=== PATIENT | female | born 1950 | race Caucasian/White ===

== ENCOUNTER 2017-06-10 21:38 | Emergency (ER) | payer MEDICARE ==
[~2017-06-10] VITALS: Ht 165.1 cm; Wt 61.8 kg
[~2017-06-10 21:38] MED LIST: ASPI81CH3 PO; BUPR150T3 PO; GABA600T PO; HYDR200T42 PO; LOSA50TA PO; MULT1TAB PO; NIFE30TA2 PO; OMEP20TA39 PO; PRESCAP5 PO; PROBCAP28; TUMS500C CHEW; [UNRECOGNIZED DRUG - CODE] TOPICAL
[2017-06-10 22:02] VITALS: BP 152/68; PULSE 106; RESP 18; TEMP 97.4; O2SAT 94
[2017-06-10] MEDS ORDERED: OCUVTAB4 PO (22:35)
[2017-06-10] MEDS ORDERED: PLAQ200T PO (22:35)
[2017-06-10] MEDS ORDERED: MULTTAB67 PO (22:35)
[2017-06-10] MEDS ORDERED: LOSA50TA PO (22:35)
[2017-06-10] MEDS ORDERED: NIFE1TAB PO (22:35)
[2017-06-10] MEDS ORDERED: BETH25TA2 PO (22:35)
[2017-06-10] MEDS ORDERED: ASPI-516 CHEW (22:35)
[2017-06-10] MEDS ORDERED: OMEP40CA2 PO (22:35)
--- NOTE | 2017-06-10 22:40 | PD ---
HPI Chief Complaint: ENT Complaint Time Seen by Provider: 22:27 Travel History International Travel<30 days: No Contact w/Intl Traveler<30days: No Traveled to known affect area: No History of Present Illness HPI This is a 66-year-old female who has a history of scleroderma who presents to the emergency department with bleeding from her nose that started 2 hours ago and just subsided here in the emergency department, constant, moderate severity , associated with some blood in her mouth. She had one episode of bleeding from her nose one week ago which subsided on its own. She takes a baby aspirin every day. She recently increased her blood pressure medications. PFSH Past Medical History Hx Anticoagulant Therapy: Yes (ASA 81 MG) Diminished Hearing: No Medical other: Yes (scleroderma) Tetanus Vaccination: Never Vaccinated Influenza Vaccination: Yes ?: Not Past Surgical History Surgical History: No Previous Surgery Social History Alcohol Use: Yes (2-4 drinks of wine daily) Tobacco Use: No Substance Use: No Allergies-Medications (Allergen,Severity, Reaction): Coded Allergies: No Known Allergies (Unverified Adverse Reaction, Unknown, 06/10/17) Reported Meds & Prescriptions Reported Meds & Active Scripts Active Bupropion HCl ER 24 HR (Bupropion HCl) 150 Mg Tab 150 Mg PO DAILY Gabapentin 600 Mg Tab 600 Mg PO HS Reported Multiple Vitamin 1 Tab 1 Tab PO DAILY Preservision Areds (Multiple Vitamins W/ Minerals) 1 Tab 1 Tab PO BID Bethanechol 25 Mg Tab 25 Mg PO QID Plaquenil (Hydroxychloroquine Sulfate) 200 Mg Tab 200 Mg PO DAILY Take with food Aspirin 81 Mg Chew 81 Mg CHEW DAILY Nifedipine ER 24 HR (Nifedipine) 90 Mg Tab 90 Mg PO DAILY Omeprazole 40 Mg Cap 40 Mg PO DAILY Losartan (Losartan Potassium) 50 Mg Tab 50 Mg PO DAILY Review of Systems General / Constitutional: No: Fever, Chills Cardiovascular: No: Chest Pain or Discomfort Respiratory: No: Shortness of Breath Physical Exam Narrative GENERAL: Well-appearing, no acute distress, nontoxic SKIN: Warm and dry. HEAD: Atraumatic. Normocephalic. ENT: Blood along the left nare. Moist mucous membranes MUSCULOSKELETAL: No obvious deformities. Moving all extremities. NEUROLOGICAL: Awake and alert. No obvious cranial nerve deficits. Motor grossly within normal limits. Normal speech. PSYCHIATRIC: Appropriate mood and affect; insight and judgment normal. Data Data Last Documented VS Vital Signs Date Time Temp Pulse Resp B/P (MAP) Pulse Ox O2 Delivery O2 Flow Rate FiO2 06/10/17 22:15 18 06/10/17 22:02 97.4 106 152/68 (96) 94 Orders Orders Ed Discharge Order (06/10/17 22:40) MDM Medical Decision Making Medical Screen Exam Complete: Yes Emergency Medical Condition: Yes Differential Diagnosis Anterior epistaxis, posterior epistaxis, anemia Narrative Course This is a 66-year-old female who presents to the emergency department with anterior epistaxis that lasted for 2 hours at home but subsided here in the emergency department. She appears well. She had labs done by her primary care doctor earlier this week I would like to follow-up with him for the results. I do not think any additional intervention is warranted. Patient will be discharged home. Her has a relationship with Dr. Bennett and she wants to follow-up with him. Diagnosis Primary Impression: Anterior epistaxis Patient Instructions: General Instructions Additional Instructions: If you have another nose bleed: - Sit forward at the waist, don't lie down or tilt your head back. - Pinch the soft area towards the bottom of your nose below the bone. - Squeeze your nose shut for ATLEAST 15 minutes. Use a clock and don't release pressure until time is up. If this fails try again for 30 minutes. If your nose continues to bleed, go to the emergency department. Return to the Emergency department if: You are having difficulty bleeding Your nose bleeds cause you to turn pale, or make you tired or confused If they won't stop after fifteen minutes of constant pressure If you have chest pain, shortness of breath, or other serious symptoms. Call 911 if you are bleeding a lot, have chest pain, or feel woozy. You can help prevent nose bleeds by getting a humidifier in your bedroom. Keeping the inside of your nose moist with bacitracin ointment applied with a cotton swab twice daily. Med/Other Pt SpecificInfo: No Change to Meds Disposition: 01 DISCHARGE HOME Condition: Stable Mari Hardy MD Jun 10, 2017 22:40
[2017-06-10 23:03] VITALS: BP 141/55
== END 2017-06-10 23:05 | disposition home or self-care (01) ==
LOC: PHED 21:38
DX: R04.0 Epistaxis (principal); Z79.82 Long term (current) use of aspirin
CPT/HCPCS: 99282